=== PATIENT | male | born 1960 | race African-American/Black ===

== ENCOUNTER 2019-08-20 03:43 | Emergency (ER) | payer SELFPAY ==
[~2019-08-20] VITALS: Ht 188 cm; Wt 89.5 kg
[2019-08-20] MEDS ORDERED: KETOROLAC 60MG/2ML VIAL IM ONE (04:15)
[2019-08-20 05:03] VITALS: BP 131/80
== END 2019-08-20 05:05 | disposition home or self-care (01) ==
LOC: ER 03:43
DX: M25.511 Pain in right shoulder (principal); R03.0 Elevated blood-pressure reading, without diagnosis of hypertension
CPT/HCPCS: 73030; 96372; 99283; J1885

== ENCOUNTER 2021-03-10 15:32 | Emergency (ER) | payer MEDICAID ==
[~2021-03-10] VITALS: Ht 188 cm; Wt 90.0 kg
[2021-03-10 15:50] VITALS: BP 112/85
== END 2021-03-10 18:22 | disposition left against medical advice (07) ==
LOC: ER 15:32
DX: Z53.21 Procedure and treatment not carried out due to patient leaving prior to being seen by health care provider (principal)

== ENCOUNTER 2022-06-26 05:44 | Emergency (ER) | payer MEDICAID, OTHER ==
[~2022-06-26] VITALS: Ht 188 cm; Wt 100.0 kg
[2022-06-26] MEDS ORDERED: HYDROCODONE/ACETAMINOPHEN 5/325MG TABLET PO ONE (06:45)
[2022-06-26] MEDS ORDERED: KETOROLAC 60MG/2ML VIAL IM NR (07:00)
[2022-06-26] MEDS ORDERED: HYDR-4001 MT (07:59)
[2022-06-26 08:20] VITALS: BP 149/83
== END 2022-06-26 08:21 | disposition home or self-care (01) ==
LOC: ER 05:44
DX: M75.31 Calcific tendinitis of right shoulder (principal); J45.909 Unspecified asthma, uncomplicated; Z98.890 Other specified postprocedural states
CPT/HCPCS: 73030; 96372; 99283; J1885; Z7610

== ENCOUNTER 2022-12-13 19:08 | Emergency (ER) | payer MEDICAID ==
[~2022-12-13] VITALS: Ht 188 cm; Wt 94.0 kg
[~2022-12-13 19:08] MED LIST: HYDR-4001 MT
[2022-12-13 19:34] VITALS: BP 144/89; PULSE 96; RESP 18; TEMP 98.7; O2SAT 100
[2022-12-13] MEDS ORDERED: IBUP-2030 MT (20:28)
[2022-12-13] MEDS ORDERED: CLIN-194 MT (20:28)
== END 2022-12-13 20:58 | disposition home or self-care (01) ==
LOC: ER 19:08
DX: L03.114 Cellulitis of left upper limb (principal); J45.909 Unspecified asthma, uncomplicated
CPT/HCPCS: 99281; 99283

== ENCOUNTER 2024-09-02 09:23 | Emergency (ER) | payer BC, MEDICAID ==
[~2024-09-02] VITALS: Ht 185.4 cm; Wt 102.0 kg
[~2024-09-02 09:23] MED LIST changes: -HYDR-4001 MT; +IBUP100O21 MT
[2024-09-02 09:26] VITALS: O2SAT 100
[2024-09-02] MEDS: ACETAMINOPHEN 325MG TABLET PO ONE (10:57)
[2024-09-02 11:03] LABS: BASOPHILS % 0.6 % (0.0-2.0); EOSINOPHILS % 1.4 % (0.0-5.0); HEMATOCRIT. 40.5 % (42.0-52.0); HEMOGLOBIN. 13.4 g/dL (14.0-18.0); MEAN CORPUSCULAR HGB CONC 33.1 g/dL (31.0-37.0); MEAN CORPUSCULAR VOLUME 84.7 fL (80.0-94.0); MEAN PLATELET VOLUME 7.7 fl (7.4-10.4); MONOCYTES % 7.7 % (2.0-8.0); NEUTROPHILS % 61.3 % (40.0-76.0); PLATELET 240 x1000/uL (130-400); RED BLOOD CELL COUNT 4.78 mill/uL (4.7-6.1); RED CELL DISTRIBUTION WIDTH 13.8 % (11.6-14.6); WHITE BLOOD COUNT 6.4 x1000/uL (4.5-11.0)
[2024-09-02 11:10] LABS: CARBON DIOXIDE 26 mEq/L (21-32); CHLORIDE 108 mEq/L (98-107); POTASSIUM 4.4 mEq/L (3.5-5.1); SODIUM 141 mEq/L (136-145)
[2024-09-02 11:11] LABS: CALCIUM 9.8 mg/dL (8.7-10.4)
[2024-09-02 11:16] LABS: GLUCOSE 116 mg/dL (70-105); UREA NITROGEN BLOOD 11 mg/dL (9-23)
[2024-09-02] MEDS ORDERED: ASPI-1497 MT (13:36)
[2024-09-02] MEDS ORDERED: CLOP-31 MT (13:36)
[2024-09-02 13:42] VITALS: BP 138/85; PULSE 79; RESP 16; TEMP 36.7; O2SAT 100
== END 2024-09-02 13:49 | disposition home or self-care (01) ==
LOC: ER 09:23
DX: R20.2 Paresthesia of skin (principal); I74.9 Embolism and thrombosis of unspecified artery; J45.909 Unspecified asthma, uncomplicated; Z98.890 Other specified postprocedural states
CPT/HCPCS: 36415; 73130; 73200; 80048; 85025; 93922; 93971; 99284

== ENCOUNTER 2025-01-12 12:06 | Emergency (ER) | payer BC, MEDICAID ==
[~2025-01-12] VITALS: Ht 188 cm; Wt 91.0 kg
[~2025-01-12 12:06] MED LIST changes: +APIX5TAB MT; -IBUP100O21 MT
[2025-01-12 12:24] VITALS: BP 147/92; TEMP 36.8; O2SAT 99
[2025-01-12 12:25] VITALS: PULSE 99; RESP 18; O2SAT 100
== END 2025-01-12 15:08 | disposition home or self-care (01) ==
LOC: ER 12:06
DX: R10.9 Unspecified abdominal pain (principal); J45.909 Unspecified asthma, uncomplicated; Z98.890 Other specified postprocedural states; Z79.01 Long term (current) use of anticoagulants; Z86.718 Personal history of other venous thrombosis and embolism
CPT/HCPCS: 93971; 99284